=== PATIENT | female | born 1990 | race African-American/Black ===

== ENCOUNTER 2016-09-27 07:51 | Emergency (ER) | payer OTHER ==
[2016-09-27] MEDS ORDERED: ALBUTEROL SO4 2.5/IPRATROPIUM 0.5 INH SOL 3 ML VIAL.NEB. NEB ONE ×2 (07:58→08:39)
[2016-09-27] MEDS ORDERED: DEXAMETHASONE SOD PHOSPHATE 10 MG/1 ML VIAL ONE (07:58)
[2016-09-27 08:05] VITALS: TEMP 97.5; BMI 25.5
--- NOTE | 2016-09-27 08:08 | PDOC ---
History of Present Illness - General History Source: Patient, EMS Exam Limitations: No Limitations - History of Present Illness Initial Comments: 09/27/16 08:24 The patient is a 26 year old female with a past medical history of asthma (no prior intubations), BIBA to the emergency department today with shortness of breath for 3 days. On Wednesday the patient went out with friends and smoked hookah. Wednesday morning the patient began to experience some chest tightness. The patient notes that her last cycle of steroids was finished last month and she has been using her breathing pump at home but has been unable to use her rescue inhaler due to insurance complications. She denies cough, fever, and chills PAST MEDICAL HISTORY: Asthma PAST SURGICAL HISTORY: No significant history reported SOCIAL HISTORY: Current smoker <Edgardo Acosta - Last Filed: 09/27/16 08:24> - General History Source: Patient, Old Records Exam Limitations: No Limitations <Jasmin Almanza - Last Filed: 09/27/16 10:41> - General Chief Complaint: Asthma Stated Complaint: ASTHMA Time Seen by Provider: 09/27/16 08:02 Past History <Edgardo Acosta - Last Filed: 09/27/16 08:24> - Past Medical History Asthma: Yes - Psycho/Social/Smoking Cessation Hx Anxiety: No Suicidal Ideation: No Smoking History: Current some day smoker Have you smoked in the past 12 months: Yes Number of Cigarettes Smoked Daily: 1 Information on smoking cessation initiated: No Hx Alcohol Use: No Drug/Substance Use Hx: No Substance Use Type: None <Jasmin Almanza - Last Filed: 09/27/16 10:41> - Past Medical History Allergies/Adverse Reactions: Allergies Allergy/AdvReac Type Severity Reaction Status Date / Time No Known Allergies Allergy Verified 09/27/16 07:59 Home Medications: Ambulatory Orders Albuterol 0.083% Nebulizer Elen [Ventolin 0.083%] 1 neb NEB Q4H PRN 09/27/16 Albuterol Sulfate [Proair Respiclick] 90 mcg IH BID PRN 09/27/16 Prednisone [Deltasone -] 40 mg PO UTDICT #8 tablet 09/27/16 Review of Systems - Review of Systems Able to Perform ROS?: Yes Comments:: 09/27/16 08:25 CONSTITUTIONAL: Absent: fever, chills, diaphoresis, generalized weakness, malaise, loss of appetite HEENT: Absent: rhinorrhea, nasal congestion, throat pain, throat swelling, difficulty swallowing, mouth swelling, ear pain, eye pain, visual Changes CARDIOVASCULAR: Present: chest tightness Absent: syncope, palpitations, irregular heart rate, lightheadedness, peripheral edema RESPIRATORY: Present: Shortness of breath Absent: cough, shortness of breath, dyspnea with exertion, orthopnea, wheezing, stridor, hemoptysis GASTROINTESTINAL: Absent: abdominal pain, abdominal distension, nausea, vomiting, diarrhea, constipation, melena, hematochezia GENITOURINARY: Absent: dysuria, frequency, urgency, hesitancy, hematuria, flank pain, genital pain MUSCULOSKELETAL: Absent: myalgia, arthralgia, joint swelling SKIN: Absent: rash, itching, pallor HEMATOLOGIC/IMMUNOLOGIC: Absent: easy bleeding, easy bruising, lymphadenopathy, frequent infections ENDOCRINE: Absent: unexplained weight gain, unexplained weight loss, heat intolerance, cold intolerance NEUROLOGIC: Absent: headache, focal weakness or paresthesias, dizziness, unsteady gait, seizure, mental status changes, bladder or bowel incontinence PSYCHIATRIC: Absent: anxiety, depression, suicidal or homicidal ideation, hallucinations. <Edgardo Acosta - Last Filed: 09/27/16 08:24> *Physical Exam - Vital Signs Last Vital Signs Temp Pulse Resp BP Pulse Ox 97.5 F L 95 H 20 119/85 94 L 09/27/16 08:01 09/27/16 08:01 09/27/16 08:01 09/27/16 08:01 09/27/16 08:01 - Physical Exam Comments: 09/27/16 08:25 GENERAL: Well developed, well nourished. Awake and alert. In no acute distress. HEENT: Normocephalic, atraumatic. PERRLA, EOMI. No conjunctival pallor. Sclera are non- icteric. Moist mucous membranes. Oropharynx is clear. NECK: Supple. Full ROM. No JVD. Carotid pulses 2+ and symmetric, without bruits. No thyromegaly. No lymphadenopathy. CARDIOVASCULAR: Regular rate and rhythm. No murmurs, rubs, or gallops. Distal pulses are 2+ and symmetric. PULMONARY: (+) Mild evidence of respiratory distress. Lungs clear to auscultation bilaterally. Diffuse bilateral expiratory wheezing. No rales or rhonchi. ABDOMINAL: Soft. Non-tender. Non-distended. No rebound or guarding. No organomegaly. Normoactive bowel sounds. MUSCULOSKELETAL Normal range of motion at all joints. No bony deformities or tenderness. No CVA tenderness. EXTREMITIES: No cyanosis. No clubbing. No edema. No calf tenderness. SKIN: Warm and dry. Normal capillary refill. No rashes. No jaundice. NEUROLOGICAL: Alert, awake, appropriate. Cranial nerves 2-12 intact. No deficits to light touch and temperature in face, upper extremities and lower extremities. No motor deficits in the in face, upper extremities and lower extremities. Normoreflexic in the upper and lower extremities. Normal speech. Toes are downgoing bilaterally. Gait is normal without ataxia. PSYCHIATRIC: Cooperative. Good eye contact. Appropriate mood and affect. <Edgardo Acosta - Last Filed: 09/27/16 08:24> - Vital Signs Last Vital Signs Temp Pulse Resp BP Pulse Ox 97.5 F L 95 H 20 119/85 94 L 09/27/16 08:01 09/27/16 08:01 09/27/16 08:01 09/27/16 08:01 09/27/16 08:01 <Jasmin Almanza - Last Filed: 09/27/16 10:41> Medical Decision Making - Medical Decision Making 09/27/16 08:17 26-year-old female with history of asthma no prior intubations presents to the emergency department with shortness of breath since yesterday; she received one DuoNeb treatment by EMS as well as dexamethasone 10 mg IV in the field. She is in mild respiratory distress and has good air movement on lung exam. Differential diagnosis includes but is not limited to: Shortness of breath secondary to Acute asthmatic exacerbation. Plan: 1. DuoNeb treatments 2. Peak flow measurement 3. Observe and reevaluate 09/27/16 10:38 Addendum: I have reevaluated patient at this time after 3 albuterol and Atrovent nebs. The patient is feeling improved. Her lungs have scant wheezing at the bilateral bases. She is saturating well on room air and is comfortable in no respiratory distress. The plan is to discharge the patient home. She is being prescribed prednisone 40 mg daily for the next 4 days. The patient states that she has a prescription for an albuterol MDI. She will follow up with her primary care doctor within the next week and return to the emergency department if her symptoms persist, worsen, or new symptoms arise. <Jasmin Almanza - Last Filed: 09/27/16 10:41> *DC/Admit/Observation/Transfer - Attestations Scribe Attestion: 09/27/16 08:25 Documentation prepared by Edgardo Acosta, acting as medical dosimetrist for Jasmin Almanza MD. <Edgardo Acosta - Last Filed: 09/27/16 08:24> - Discharge Dispostion Admit: No - Attestations Physician Attestion: 09/27/16 08:19 I, Dr. Jasmin Almanza, attest that the scribes documentation that appears above has been prepared under my direction and personally reviewed by me in its entirety. I confirmed that the note above accurately reflects all work, treatment, procedures, and medical decision-making performed by me. <Jasmin Almanza - Last Filed: 09/27/16 10:41> Diagnosis at time of Disposition: Shortness of breath, Acute asthma exacerbation - Discharge Dispostion Disposition: HOME Condition at time of disposition: Stable - Referrals Referrals: STAFF,NOT ON [Primary Care Provider] - - Patient Instructions Additional Instructions: You are being prescribed prednisone 40 mg daily for the next 4 days. Please follow-up with your primary care physician within the next week. Please fill your prescription for the albuterol MDI today. Return to the emergency department if your symptoms persist, worsen, or new symptoms arise.
[2016-09-27] MEDS: ALBUTEROL SO4 2.5/IPRATROPIUM 0.5 INH SOL 3 ML VIAL.NEB. NEB SCH ×4 (08:43→10:58)
[2016-09-27 10:58] VITALS: BP 121/78; PULSE 84
== END 2016-09-27 10:58 | disposition home or self-care (01) ==
LOC: JER 07:51
DX: J45.901 Unspecified asthma with (acute) exacerbation (principal)
CPT/HCPCS: 99282-25

== ENCOUNTER 2018-03-16 07:37 | Emergency (ER) | payer OTHER ==
[2018-03-16] MEDS ORDERED: MAGNESIUM 1GM/D5W - 2 GM/200 ML IVPB IVPB ONE (07:44)
[2018-03-16] MEDS ORDERED: ALBUTEROL SO4 2.5/IPRATROPIUM 0.5 INH SOL 3 ML VIAL.NEB. NEB ONE ×4 (07:45→13:14)
[2018-03-16] MEDS ORDERED: MAGNESIUM SULF 50% (8.12 MEQ/2 ML-1 GM VIAL) IVPB ONE (07:46)
[2018-03-16 07:59] VITALS: BMI 27.4
[2018-03-16 08:57] LABS: ALBUMIN 3.6 g/dl (3.4-5.0); ALK PHOS 75 U/L (45-117); ANION GAP 7 MMOL/L (8-16); BILIRUBIN,TOTAL 0.4 mg/dL (0.2-1); BLOOD UREA NITROGEN 7 mg/dL (7-18); CALCIUM 8.4 mg/dL (8.5-10.1); CHLORIDE 105 mmol/L (98-107); CO2 27 mmol/L (21-32); CREATININE 0.9 mg/dL (0.55-1.3); GLUCOSE,RANDOM 121 mg/dL (74-106); POTASSIUM 3.9 mmol/L (3.5-5.1); SGOT/AST 19 U/L (15-37); SGPT/ALT 21 U/L (13-61); SODIUM 139 mmol/L (136-145); TOT PROT 6.9 g/dl (6.4-8.2)
[2018-03-16 09:14] LABS: BASO % 0.4 % (0-2.0); EOS % 9.6 % (0-4.5); HEMATOCRIT 41.7 % (32.4-45.2); HEMOGLOBIN 14.5 GM/dL (10.7-15.3); LYMPH % 29.5 % (8-40); MCH 32.2 pg (25.7-33.7); MCHC 34.7 g/dl (32.0-36.0); MEAN CELL VOLUME 92.8 fl (80-96); MEAN PLT VOLUME 8.1 fl (7.5-11.1); NEUT % 52.5 % (42.8-82.8); PLATELET COUNT 240 K/MM3 (134-434); RDW 13.5 % (11.6-15.6); WHITE BLOOD COUNT 7.4 K/mm3 (4.0-10.0)
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
[2018-03-16] MEDS ORDERED: ALBUTEROL SO4 0.083% IH SOL 2.5 MG/3 ML VIAL.NEB. NEB ONE ×6 (10:33→16:22)
[2018-03-16 16:21] VITALS: BP 118/86; PULSE 91; TEMP 98.1
== END 2018-03-16 16:24 | disposition home or self-care (01) ==
LOC: JER 07:37
PROC: 3E033GC Introduction of Other Therapeutic Substance into Peripheral Vein, Percutaneous Approach (ICD-10-PCS; principal; 2018-03-16)
PROC: 3E0F7GC Introduction of Other Therapeutic Substance into Respiratory Tract, Via Natural or Artificial Opening (ICD-10-PCS; 2018-03-16)
DX: J45.901 Unspecified asthma with (acute) exacerbation (principal); Z87.891 Personal history of nicotine dependence
CPT/HCPCS: 36415; 80053; 84703; 85025; 99284-25

== ENCOUNTER 2018-03-17 04:17 | Observation (INO) | payer OTHER ==
[2018-03-17] MEDS ORDERED: MAGNESIUM SULF 50% (8.12 MEQ/2 ML-1 GM VIAL) IVPB ONE (04:49)
[2018-03-17] MEDS ORDERED: MAGNESIUM 1GM/D5W - 1 GM/100 ML IVPB IVPB ONE (04:49)
[2018-03-17] MEDS ORDERED: ALBUTEROL SO4 2.5/IPRATROPIUM 0.5 INH SOL 3 ML VIAL.NEB. NEB ONE ×3 (04:49→12:27)
--- NOTE | 2018-03-17 04:49 | PDOC ---
History of Present Illness - General Chief Complaint: Asthma Stated Complaint: ASTHMA,DIFFICULTY BREATHING Time Seen by Provider: 03/17/18 04:44 - History of Present Illness Initial Comments: 03/17/18 05:06 The patient is a 27 year old female with a history of asthma who presents for evaluation of shortness of breath. The patient notes that she has had prior hospitalizations for asthma exacerbation with her last one being 6 years ago. She has never been intubated. She notes that she recently presented to the ED 1 day ago for similar symptoms of difficulty breathing and was treated with decadron and duonebs with some improvement in her symptoms. She notes that after her discharge, she had improved, however she awoke this morning with worsening difficulty breathing prompting her presentation to the ED for further evaluation. She otherwise denies fevers, chills, chest pain, nausea, vomiting, abdominal pain, or changes with urination or bowel movements. Past History - Past Medical History Allergies/Adverse Reactions: Allergies Allergy/AdvReac Type Severity Reaction Status Date / Time No Known Allergies Allergy Verified 03/17/18 04:38 Home Medications: Ambulatory Orders Albuterol 0.083% Nebulizer Elen [Ventolin 0.083% Nebulizer Soln -] 1 neb NEB Q4H PRN #1 vial 02/01/17 Albuterol Sulfate Inhaler - [Ventolin HFA Inhaler -] 2 inh PO Q4H PRN #1 inh 09/12 Albuterol Sulfate Inhaler - [Ventolin HFA Inhaler -] 1 - 2 inh PO Q4H #1 inhaler 03/16/18 Dexamethasone [Decadron] 8 mg PO DAILY #2 tablet 03/16/18 Asthma: Yes COPD: No - Suicide/Smoking/Psychosocial Hx Smoking History: Never smoked Have you smoked in the past 12 months: No Number of Cigarettes Smoked Daily: 4 If you are a former smoker, when did you quit?: 02/2018 Information on smoking cessation initiated: No Hx Alcohol Use: No Drug/Substance Use Hx: No Substance Use Type: None Review of Systems - Review of Systems Comments:: 03/17/18 05:12 Constitutional: No fevers, chills, fatigue, malaise HEENT: No Rhinorrhea, nasal congestion, visual changes Cardiovascular: No chest pain, syncope, palpitations, lightheadedness Respiratory: SOB. No Cough, Hemoptysis, Gastrointestinal: No Abdominal pain, Nausea, Vomiting, Constipation, Diarrhea, Melena Genitourinary: No Dysuria, Frequency, Urgency, Hesitancy, Hematuria, Flank pain Musculoskeletal: No Myalgia, arthralgia Skin: No rashes, itching, bruising, pallor Neurologic: No Headache, Dizziness, Numbness, Weakness, or Tingling Psychiatric: No Hallucinations. No SI or HI *Physical Exam - Vital Signs Last Vital Signs Temp Pulse Resp BP Pulse Ox 96.8 F L 110 H 22 H 145/95 94 L 03/17/18 04:17 03/17/18 04:17 03/17/18 04:17 03/17/18 04:17 03/17/18 04:17 - Physical Exam Comments: 03/17/18 05:12 General Appearance: Nourished. In [place] Apparent Distress HEENT: No Pharyngeal Erythema, Tonsillar Exudate, Tonsillar Erythema Neck: No Cervical Lymphadenopathy Respiratory/Chest: Diffuse inspiratory and expiratory wheezing with course breath sounds and poor air movement. No Crackles, Rales, Rhonchi, Cardiovascular: Regular Rhythm, Regular Rate. No Murmur, Gallops, Rubs Gastrointestinal/Abdominal: Normal Bowel Sounds, Soft. No Guarding, Rebound, Tenderness Musculoskeletal: No CVA Tenderness Extremity: Normal Capillary Refill Integumentary: Normal Color, Dry, Warm Neurologic: Fully Oriented, Alert, Normal Mood/Affect, Normal Response, Moderate Sedation - Procedure Monitoring Vital Signs: Procedure Monitoring Vital Signs Temperature 96.8 F L 03/17/18 04:17 Pulse Rate 110 H 03/17/18 04:17 Respiratory Rate 22 H 03/17/18 04:17 Blood Pressure 145/95 03/17/18 04:17 O2 Sat by Pulse Oximetry (%) 94 L 03/17/18 04:17 Heart Score/ECG Review #1 ECG reviewed & interpreted by me at: 06:58 General ECG Interpretation: Sinus Rhythm, Normal Intervals, No acute ischemic changes 03/17/18 06:58 Sinus Tachycardia ED Treatment Course - LABORATORY CBC & Chemistry Diagram: 03/17/18 04:51 03/17/18 04:51 Medical Decision Making - Medical Decision Making 03/17/18 05:13 The patient is a 27 year old female with a history of asthma who presents for evaluation of shortness of breath. Given the patient's history and physical exam, it is likely her symptoms are due to a recurrent asthma exacerbation. We will obtain a cbc, cmp, chest plain film, ekg to evaluate further. We will treat with continuous duonebs and mag. She will likely require admission for further management given her desaturations and persistent asthma exacerbation. We will continue to monitor and reassess while here in the ED. 03/17/18 06:49 CMP is unremarkable. Chest plain film is unremarkable. The patient reports some improvement in her symptoms, but continues to have course breath sound and wheezing on exam. She will require admission for further monitoring and management. We discussed the case with the admitting team who accepted the patient for admission. *DC/Admit/Observation/Transfer Diagnosis at time of Disposition: Acute asthma exacerbation Qualifiers: Asthma severity: unspecified severity Asthma persistence: unspecified Qualified Code(s): J45.901 - Unspecified asthma with (acute) exacerbation - Discharge Dispostion Condition at time of disposition: Fair Decision to Admit order: Yes - Referrals Referrals: Angel White [Primary Care Provider] - - Patient Instructions - Post Discharge Activity
[2018-03-17 05:39] LABS: ALBUMIN 4.1 g/dl (3.4-5.0); ALK PHOS 84 U/L (45-117); ANION GAP 7 MMOL/L (8-16); BILIRUBIN,TOTAL 0.2 mg/dL (0.2-1); BLOOD UREA NITROGEN 11 mg/dL (7-18); CALCIUM 9.5 mg/dL (8.5-10.1); CHLORIDE 108 mmol/L (98-107); CO2 23 mmol/L (21-32); CREATININE 0.8 mg/dL (0.55-1.3); GLUCOSE,RANDOM 104 mg/dL (74-106); POTASSIUM 4.5 mmol/L (3.5-5.1); SGOT/AST 20 U/L (15-37); SGPT/ALT 22 U/L (13-61); SODIUM 138 mmol/L (136-145)
--- NOTE | 2018-03-17 06:08 | PDOC ---
Attending Attestation - Resident Resident Name: RhonaClaudio - ED Attending Attestation I have performed the following: I have examined & evaluated the patient, The case was reviewed & discussed with the resident, I agree w/resident's findings & plan, Exceptions are as noted - HPI HPI: 03/23/18 19:31 27F pmh of asthma here with acute exacerbation of her asthma, was here yesterday for same complaint, symptoms were controlled well enough for discharge. Early in the morning, her symptoms worsened to intolerability and she returnded to the ED. No other complaints. - Physicial Exam PE: 03/23/18 19:32 Agree with exam as documented by resident - Medical Decision Making 03/23/18 19:33 Acute exacerbation of asthma, re-presentation after 1 day. Agressive symptomatic tx, re-eval Low threshold for admission for therapy and monitoring
[2018-03-17 06:37] LABS: BASO % 0.2 % (0-2.0); EOS % 0.1 % (0-4.5); HEMATOCRIT 41.5 % (32.4-45.2); HEMOGLOBIN 14.3 GM/dL (10.7-15.3); LYMPH % 13.3 % (8-40); MCH 31.8 pg (25.7-33.7); MCHC 34.5 g/dl (32.0-36.0); MEAN CELL VOLUME 92.2 fl (80-96); MEAN PLT VOLUME 8.7 fl (7.5-11.1); MONO % 7.2 % (3.8-10.2); NEUT % 79.2 % (42.8-82.8); PLATELET COUNT 280 K/MM3 (134-434); RDW 13.5 % (11.6-15.6); WHITE BLOOD COUNT 13.6 K/mm3 (4.0-10.0)
[2018-03-17] MEDS ORDERED: methylPREDNISolone NA SUCC 125 MG/2 ML VIAL IVPUSH ONE (07:40)
[2018-03-17] MEDS ORDERED: methylPREDNISolone NA SUCC 125 MG/2 ML VIAL ONE (08:30)
--- NOTE | 2018-03-17 09:18 | PN ---
Teaching Attending Note Name of Resident: Viktoria Watts ATTENDING PHYSICIAN STATEMENT I saw and evaluated the patient. I reviewed the resident's note and discussed the case with the resident. I agree with the resident's findings and plan as documented with exceptions below. SUBJECTIVE: 27 yof with PMhx of Asthma since childhood, never intubated, has been getting progressively short of breath, wheezy over last 1 month associated with occasional non productive cough. 2 weeks ago, was seen in another ED, placed on 3 days of prednisone. Yesterday AM, felt more short of breath and was seen in ED here s/p dexamethasone and sent out on dexamethasone but had not taken it yet. Today AM again woke up with worsening breathing/wheezing came to ED. s/p nebs/Solumedrol/Mg in the ED. Feels better. Denies any recent fevers/chills, URI like illness, sick contacts, antibiotics or recent travel. Reports usually stable asthma in august, but frequent use of inhalers in winter months, several times week. Also positive seasonal allergies. No recent change in living condition. 12 point ROS done, neg except above. Quit smoking 1 month ago. OBJECTIVE: Vital Signs Period Temp Pulse Resp BP Sys/Lebron Pulse Ox Last 24 Hr 96.8 F-98 F 96-110 22-22 116-145/73-95 94-98 Intake & Output 03/14/18 03/15/18 03/16/18 03/17/18 23:59 23:59 23:59 23:59 Weight 160 lb GENERAL: Awake, alert, and fully oriented, in no acute distress, able to talk in full sentences, no use of accessory muscles of respiration. HEAD: Normal with no signs of trauma. EYES: Pupils equal, round and reactive to light, extraocular movements intact, sclera anicteric, conjunctiva clear. No lid lag. EARS, NOSE, THROAT: Ears normal, nares patent, oropharynx clear without exudates. Moist mucous membranes. NECK: Normal range of motion, supple without lymphadenopathy, JVD, or masses. LUNGS: scattered expiratory wheezing bilaterally, good air entry noted, no rales appreciated HEART: RS1S2 regular tachycardic ABDOMEN: Soft, nontender, not distended, normoactive bowel sounds, no guarding, no rebound, no masses. MUSCULOSKELETAL: Normal range of motion at all joints. No bony deformities or tenderness. No CVA tenderness. UPPER EXTREMITIES: 2+ pulses, warm, well-perfused. No cyanosis. No clubbing. No peripheral edema. LOWER EXTREMITIES: 2+ pulses, warm, well-perfused. No calf tenderness. No peripheral edema. NEUROLOGICAL: Cranial nerves II-XII intact. Normal speech. Gait not observed PSYCHIATRIC: Cooperative. Good eye contact. Appropriate mood and affect. SKIN: Warm, dry, normal turgor, no rashes or lesions noted, normal capillary refill. Home Medications Medication Instructions Recorded Albuterol 0.083% Nebulizer Elen 1 neb NEB Q4H PRN #1 vial 02/01/17 [Ventolin 0.083% Nebulizer Soln -] Albuterol Sulfate Inhaler - 2 inh PO Q4H PRN #1 inh 02/01/17 [Ventolin HFA Inhaler -] Albuterol Sulfate Inhaler - 1 - 2 inh PO Q4H #1 inhaler 03/16/18 [Ventolin HFA Inhaler -] Dexamethasone [Decadron] 8 mg PO DAILY #2 tablet 03/16/18 Active Medications Albuterol Sulfate (Ventolin 0.083% Nebulizer Soln -) 1 amp NEB Q4H PRN PRN Reason: SHORT OF BREATH/WHEEZING Albuterol/Ipratropium (Duoneb -) 1 amp NEB RQID [facility] Heparin Sodium (Porcine) (Heparin -) 5,000 unit SQ BID [facility] Methylprednisolone Sodium Succinate (Solu-Medrol -) 40 mg IVPUSH Q12H [facility] Montelukast Sodium (Singulair -) 10 mg PO HS [facility] Laboratory Results - last 24 hr 03/17/18 03/17/18 03/17/18 04:51 04:51 04:51 WBC 13.6 H RBC 4.50 Hgb 14.3 Hct 41.5 MCV 92.2 MCH 31.8 MCHC 34.5 RDW 13.5 Plt Count 280 MPV 8.7 Absolute Neuts (auto) 10.8 H Neutrophils % 79.2 D Lymphocytes % 13.3 D Monocytes % 7.2 Eosinophils % 0.1 D Basophils % 0.2 Nucleated RBC % 0 Sodium 138 Potassium 4.5 Chloride 108 H Carbon Dioxide 23 Anion Gap 7 L BUN 11 Creatinine 0.8 Creat Clearance w eGFR > 60 Random Glucose 104 Calcium 9.5 Total Bilirubin 0.2 AST 20 ALT 22 Alkaline Phosphatase 84 Total Protein 8.0 Albumin 4.1 Serum , Qual Negative CXR image and results reviewed EKG Sinus Tach 111, no acute ST-T changes ASSESSMENT AND PLAN: 27 yof with asthma exacerbation -Acute asthma exacerbation -Seasonal allergies -Nicotine dependence, recently quit Plan: Solumedrol 40 mg IV q12h. Standing and prn nebs. Start singulair. Flu PCR but low suspicion. Presentation not concerning for infectious process, hold off on abx. Check Peak flow. Will need outpatient pulmonary/Allergy follow up and PFTs. Discussed with patient, tinable. DVTPPX Encouraged to continue to smoking cessation. dispo admit to obs, d/c in 24hours of prednisone taper if continues to improve. Plan discussed with patient in detail, all questions answered. total admit time 55 min.
--- NOTE | 2018-03-17 09:28 | HP ---
CHIEF COMPLAINT: SOB PCP: None HISTORY OF PRESENT ILLNESS: The patient is a 27 year old female with a PMH of asthma, seasonal allergies. She presented today to the hospital complaining of SOB that started around 4 AM. The patient used nebulizers without improvement and decided to come to Emergency Room. Yesterday in the morning she was brought by ambulance with similar complaints. On the was to the hospital, she was given 10 mg of Decadron and discharged home on Decadron for 2 days. 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 She states that over the past month, she has been using nebulizers/inhalers almost every day and wakes up at night. She was also seen in [place] ED 2 weeks ago where she was discharged on steroids for 3 days. The patient has a history of hospitalizations for asthma in the past, steroid use, no intubations. The patient denies fever, chills, productive cough, sick contacts, changes in housing, relocating. She quit smoking a month ago and states that every year around the same time she gets asthma exacerbations. ER course was notable for: (1)CXR (2)Mg (3)Duoneb PAST MEDICAL HISTORY: as above PAST SURGICAL HISTORY: none Social History: Smoking:quit February 07 2018, smoked for "years" Alcohol:occasionally Drugs: denies Family History: sister: asthma, seasonal allergies paerents: healthy grandparents: DM, HTN Allergies No Known Allergies Allergy (Verified 03/17/18 04:38) HOME MEDICATIONS: Home Medications Medication Instructions Recorded Albuterol 0.083% Nebulizer Elen 1 neb NEB Q4H PRN #1 vial 02/01/17 [Ventolin 0.083% Nebulizer Soln -] Albuterol Sulfate Inhaler - 2 inh PO Q4H PRN #1 inh 02/01/17 [Ventolin HFA Inhaler -] Albuterol Sulfate Inhaler - 1 - 2 inh PO Q4H #1 inhaler 03/16/18 [Ventolin HFA Inhaler -] Dexamethasone [Decadron] 8 mg PO DAILY #2 tablet 03/16/18 REVIEW OF SYSTEMS CONSTITUTIONAL: Absent: fever, chills, diaphoresis, generalized weakness, weight change HEENT: Absent: rhinorrhea, nasal congestion, throat pain CARDIOVASCULAR: Absent: chest pain, syncope, palpitations, irregular heart rate, lightheadedness , peripheral edema RESPIRATORY: wheezing, shortness of breath Absent: cough, , dyspnea with exertion, orthopnea, stridor, hemoptysis GASTROINTESTINAL: Absent: abdominal pain, abdominal distension, nausea, vomiting, diarrhea, constipation GENITOURINARY: Absent: dysuria, frequency, urgency MUSCULOSKELETAL: Absent: myalgia, arthralgia, joint swelling SKIN: Absent: rash NEUROLOGIC: Absent: headache, focal weakness or paresthesias, dizziness PSYCHIATRIC: Absent: anxiety, depression PHYSICAL EXAMINATION Vital Signs - 24 hr 03/17/18 03/17/18 04:17 08:39 Temperature 96.8 F L 98 F Pulse Rate 110 H Pulse Rate [ 96 H Right] Respiratory 22 H 22 H Rate Blood Pressure 145/95 Blood Pressure 116/73 [Left] O2 Sat by Pulse 94 L 98 Oximetry (%) GENERAL: Awake, alert, and fully oriented, in no acute distress. HEAD: Normal with no signs of trauma. EYES: Pupils equal, round and reactive to light, extraocular movements intact, sclera anicteric, conjunctiva clear. EARS, NOSE, THROAT: Oropharynx clear without exudates. Moist mucous membranes. NECK: Normal range of motion, supple without lymphadenopathy, JVD, or masses. LUNGS: Breath sounds equal, clear to auscultation bilaterally. No wheezes, and no crackles. No accessory muscle use. HEART: Regular rate and rhythm, normal S1 and S2 without murmur, rub or gallop. ABDOMEN: Soft, nontender, not distended, normoactive bowel sounds, no guarding, no rebound, no masses. MUSCULOSKELETAL: No CVA tenderness. UPPER EXTREMITIES: No peripheral edema. LOWER EXTREMITIES: 2+ pulses, no peripheral edema. NEUROLOGICAL: Normal speech, no facial asymmetry, motor 5/5. PSYCHIATRIC: Cooperative. Good eye contact. Appropriate mood and affect. SKIN: Warm, dry, normal turgor, no rashes or lesions noted. Laboratory Results - last 24 hr 03/17/18 03/17/18 03/17/18 04:51 04:51 04:51 WBC 13.6 H RBC 4.50 Hgb 14.3 Hct 41.5 MCV 92.2 MCH 31.8 MCHC 34.5 RDW 13.5 Plt Count 280 MPV 8.7 Absolute Neuts (auto) 10.8 H Neutrophils % 79.2 D Lymphocytes % 13.3 D Monocytes % 7.2 Eosinophils % 0.1 D Basophils % 0.2 Nucleated RBC % 0 Sodium 138 Potassium 4.5 Chloride 108 H Carbon Dioxide 23 Anion Gap 7 L BUN 11 Creatinine 0.8 Creat Clearance w eGFR > 60 Random Glucose 104 Calcium 9.5 Total Bilirubin 0.2 AST 20 ALT 22 Alkaline Phosphatase 84 Total Protein 8.0 Albumin 4.1 Serum , Qual Negative ASSESSMENT/PLAN: The patient is a 27 year old female with a PMH of asthma, seasonal allergies. She presented today to the hospital complaining of SOB, admitted for observation for acute asthma exacerbation. Acute asthma exacerbation: (moderate persistant): -the patient was given Decadron 10 mg 24 hrs before admission, will give Solumedrol 125 mg IV and continue Solumedrol 40 mg IV q12h -continue Duonebs Q6h Valeri and q3h PRN -Peek flow ordered -CXR reviewed, no acute pathology -f/u Influenza -started Singulair 10 mg HS F/E/N: no/no changes/regular diet Dispo: observation med surg Problem List - Problem (1) Acute asthma exacerbation Code(s): J45.901 - UNSPECIFIED ASTHMA WITH (ACUTE) EXACERBATION Qualifiers: Asthma severity: unspecified severity Asthma persistence: unspecified Qualified Code(s): J45.901 - Unspecified asthma with (acute) exacerbation (2) Shortness of breath Code(s): R06.02 - SHORTNESS OF BREATH Visit type - Emergency Visit Emergency Visit: Yes ED Registration Date: 03/17/18 Care time: The patient presented to the Emergency Department on the above date and was hospitalized for further evaluation of their emergent condition. - New Patient This patient is new to me today: Yes Date on this admission: 03/17/18 - Critical Care Critical Care patient: No
[2018-03-17] MEDS ORDERED: ALBUTEROL SO4 0.083% IH SOL 2.5 MG/3 ML VIAL.NEB. NEB PRN (09:40)
[2018-03-17] MEDS ORDERED: HEPARIN NA (PORCINE) 5,000 UNITS/ML 1ML VIAL SQ SCH (10:00)
--- NOTE | 2018-03-17 12:01 | EKG ---
Test Reason : Blood Pressure : / mmHG Vent. Rate : 111 BPM Atrial Rate : 111 BPM P-R Int : 140 ms QRS Dur : 082 ms QT Int : 340 ms P-R-T Axes : 063 015 053 degrees QTc Int : 462 ms POOR DATA QUALITY, INTERPRETATION MAY BE ADVERSELY AFFECTED SINUS TACHYCARDIA OTHERWISE NORMAL ECG NO PREVIOUS ECGS AVAILABLE Confirmed by PERCY KING MD ([id number]) on 03/17/2018 12:00:40 PM Referred By: Confirmed By:PERCY KING MD
[2018-03-17] MEDS: ALBUTEROL SO4 2.5/IPRATROPIUM 0.5 INH SOL 3 ML VIAL.NEB. NEB SCH (12:29)
[2018-03-17 18:35] VITALS: BMI 27.8
[2018-03-17] MEDS ORDERED: MONTELUKAST NA 10 MG TABLET PO SCH (22:00)
[2018-03-17] MEDS: methylPREDNISolone NA SUCC 40 MG/1 ML VIAL IVPUSH SCH (22:15)
[2018-03-18] MEDS: ALBUTEROL SO4 2.5/IPRATROPIUM 0.5 INH SOL 3 ML VIAL.NEB. NEB SCH ×3 (07:21→16:21)
[2018-03-18 08:23] LABS: BASO % 0.3 % (0-2.0); HEMATOCRIT 44.7 % (32.4-45.2); HEMOGLOBIN 14.1 GM/dL (10.7-15.3); LYMPH % 9.2 % (8-40); MCH 29.6 pg (25.7-33.7); MCHC 31.5 g/dl (32.0-36.0); MONO % 4.7 % (3.8-10.2); NEUT % 85.8 % (42.8-82.8); PLATELET COUNT 284 K/MM3 (134-434); RBC 4.76 M/mm3 (3.60-5.2); RDW 13.5 % (11.6-15.6); WHITE BLOOD COUNT 13.5 K/mm3 (4.0-10.0)
[2018-03-18 08:54] VITALS: BP 125/72; TEMP 98.6
[2018-03-18 08:55] LABS: ALBUMIN 3.8 g/dl (3.4-5.0); ALK PHOS 74 U/L (45-117); ANION GAP 9 MMOL/L (8-16); BILIRUBIN,TOTAL 0.3 mg/dL (0.2-1); BLOOD UREA NITROGEN 15 mg/dL (7-18); CALCIUM 9.4 mg/dL (8.5-10.1); CHLORIDE 104 mmol/L (98-107); CO2 23 mmol/L (21-32); CREATININE 0.8 mg/dL (0.55-1.3); GLUCOSE,RANDOM 97 mg/dL (74-106); MAGNESIUM 2.5 mg/dL (1.8-2.4); PHOSPHOROUS 4.2 mg/dL (2.5-4.9); POTASSIUM 4.6 mmol/L (3.5-5.1); SGOT/AST 14 U/L (15-37); SGPT/ALT 21 U/L (13-61); SODIUM 136 mmol/L (136-145); TOT PROT 7.5 g/dl (6.4-8.2)
[2018-03-18] MEDS: methylPREDNISolone NA SUCC 40 MG/1 ML VIAL IVPUSH SCH (09:16)
[2018-03-18] MEDS ORDERED: predniSONE 20 MG TABLET (UD) PO SCH (10:00)
[2018-03-18] MEDS ORDERED: ENOXAPARIN NA (PORCINE) 40 MG/0.4 ML DISP.SYRIN SQ SCH (10:00)
[2018-03-18 10:15] VITALS: PULSE 85
--- NOTE | 2018-03-18 14:27 | DS ---
Physical Exam: SUBJECTIVE: Patient seen and examined this AM. She states that she is feeling much better than yesterday though still having some wheezing. Denies any overnight events. OBJECTIVE: Vital Signs Period Temp Pulse Resp BP Sys/Lebron Pulse Ox Last 24 Hr 98.6 F-99.0 F 65-110 18-20 111-127/72-78 93-96 PHYSICAL EXAM GENERAL: A&O, no acute distress HEAD: Normocephalic, atraumatic. EYES: PERRL, no scleral icterus EARS, NOSE, THROAT: oropharynx clear without exudates. Moist mucous membranes. NECK: supple without lymphadenopathy LUNGS: Diffuse wheezes HEART: Regular rate and rhythm, normal S1 and S2 without murmur ABDOMEN: Soft, nontender to palpation, normoactive bowel sounds EXTREMITIES: 2+ pulses, warm, well-perfused. No peripheral edema. NEUROLOGICAL: Cranial nerves II-XII grossly intact. Normal speech. PSYCHIATRIC: Cooperative. Good eye contact. Appropriate mood and affect. LABS Laboratory Results - last 24 hr 03/17/18 03/18/18 03/18/18 17:05 07:30 07:30 WBC 13.5 H RBC 4.76 Hgb 14.1 Hct 44.7 MCV 94.0 MCH 29.6 MCHC 31.5 L RDW 13.5 Plt Count 284 MPV 8.0 Absolute Neuts (auto) 11.6 H Neutrophils % 85.8 H Lymphocytes % 9.2 D Monocytes % 4.7 Eosinophils % 0.0 D Basophils % 0.3 Nucleated RBC % 0 Sodium 136 Potassium 4.6 Chloride 104 Carbon Dioxide 23 Anion Gap 9 BUN 15 Creatinine 0.8 Creat Clearance w eGFR > 60 Random Glucose 97 Calcium 9.4 Phosphorus 4.2 Magnesium 2.5 H Total Bilirubin 0.3 AST 14 L ALT 21 Alkaline Phosphatase 74 Total Protein 7.5 Albumin 3.8 Influenza A (Rapid) Negative Influenza B (Rapid) Negative HOSPITAL COURSE: Date of Admission:03/17/18 Date of Discharge: 03/18/18 HPI on admission: The patient is a 27 year old female with a PMH of asthma, seasonal allergies. She presented today to the hospital complaining of SOB that started around 4 AM. The patient used nebulizers without improvement and decided to come to Emergency Room. Yesterday in the morning she was brought by ambulance with similar complaints. On the was to the hospital, she was given 10 mg of Decadron and discharged home on Decadron for 2 days. 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 She states that over the past month, she has been using nebulizers/inhalers almost every day and wakes up at night. She was also seen in [place] ED 2 weeks ago where she was discharged on steroids for 3 days. The patient has a history of hospitalizations for asthma in the past, steroid use, no intubations. The patient denies fever, chills, productive cough, sick contacts, changes in housing, relocating. She quit smoking a month ago and states that every year around the same time she gets asthma exacerbations. Hospital Course: She was given IV SoluMedrol and Albuterol NEBs in addition to starting Singulair. Her symptoms greatly improved overnight and she was deemed medically safe for discharge on a prednisone taper and perscription for her Singulair. It was recommended that she follow up with her primary care physician within one week for further management of her asthma as well as pulmonology. Minutes to complete discharge: 35 Discharge Summary Reason For Visit: ASTHMA WITH ACUTE EXACERBATION Current Active Problems Acute asthma exacerbation (Acute) Condition: Stable - Instructions Diet, Activity, Other Instructions: You were admitted with an exacerbation of your asthma. You were given albuterol and steroids which greatly improved your symptoms. You were also started on a medication Singulair. You were monitored overnight for improvement and deemed medically safe for discharge. Medications: You should continue to use your home albuterol as needed. You were started on a medication Singulair. You should take one 10 mg Tablet each night. You should also continue the steroids by mouth as follows. Starting tomorrow, you should take 40 mg (4 tablets) for 2 days, then 30 mg (3 tablets) for 2 days , then 20 mg (2 Tablets) for 2 days, then 10 mg (1 Tablet) for 2 days, then stop taking when you run out of pills. Follow ups: You should follow up with your primary care physician within 1 week of discharge from the hospital. If you do not have one, the information for the [facility] has been provided. You should also follow up with a tennis camp instructor (lung doctor) within 2 weeks. They will likely want to do pulmonary function testing in the office and make further recommendations for the management of your asthma. If you begin to feel severely short of breath, or have any concerning symptoms, it is important that you see your doctor or return to the Emergency Department. Referrals: Kofi Mendes MD [Staff Physician] - Angel White [Primary Care Provider] - Thaddeus Prince MD [Staff Physician] - Disposition: HOME - Home Medications Comprehensive Discharge Medication List: Ambulatory Orders Albuterol Sulfate Inhaler - [Ventolin HFA Inhaler -] 1 - 2 inh PO Q4H #1 inhaler 03/16/18 Montelukast Na [Singulair -] 10 mg PO HS #30 tablet 03/18/18 predniSONE [Deltasone -] 10 mg PO ASDIR #20 tab 03/18/18 This patient is new to me today: Yes Date on this admission: 03/19/18 Emergency Visit: Yes ED Registration Date: 03/17/18 Care time: The patient presented to the Emergency Department on the above date and was hospitalized for further evaluation of their emergent condition. Critical Care patient: No - Discharge Referral Referred to [facility] Med P.C.: No
--- NOTE | 2018-03-18 14:42 | PN ---
Teaching Attending Note Name of Resident: Cl Wong ATTENDING PHYSICIAN STATEMENT I saw and evaluated the patient. I reviewed the resident's note and discussed the case with the resident. I agree with the resident's findings and plan as documented with exceptions below. SUBJECTIVE: Patient seen and examined. Breathing markedly improved. no new complaints. OBJECTIVE: Vital Signs Period Temp Pulse Resp BP Sys/Lebron Pulse Ox Last 24 Hr 98.6 F-99.0 F 65-110 18-20 111-127/72-78 93-96 Intake & Output 03/15/18 03/16/18 03/17/18 03/18/18 23:59 23:59 23:59 23:59 Intake Total 640 Balance 640 Weight 165 lb 162 lb 2 oz General: sitting in bed in no acute distress, no use of accessory muscles of respiration, able to talk in full sentences Chest: improved air entry, no rales or wheezing appreciated Active Medications Albuterol Sulfate (Ventolin 0.083% Nebulizer Soln -) 1 amp NEB Q4H PRN PRN Reason: SHORT OF BREATH/WHEEZING Albuterol/Ipratropium (Duoneb -) 1 amp NEB RQID [facility] Last Admin: 03/18/18 12:06 Dose: 1 amp Enoxaparin Sodium (Lovenox -) 40 mg SQ DAILY [facility] Last Admin: 03/18/18 09:16 Dose: 40 mg Montelukast Sodium (Singulair -) 10 mg PO HS [facility] Last Admin: 03/17/18 22:16 Dose: 10 mg Prednisone (Deltasone -) 50 mg PO DAILY [facility] Last Admin: 03/18/18 10:15 Dose: Not Given Laboratory Results - last 24 hr 03/17/18 03/18/18 03/18/18 17:05 07:30 07:30 WBC 13.5 H RBC 4.76 Hgb 14.1 Hct 44.7 MCV 94.0 MCH 29.6 MCHC 31.5 L RDW 13.5 Plt Count 284 MPV 8.0 Absolute Neuts (auto) 11.6 H Neutrophils % 85.8 H Lymphocytes % 9.2 D Monocytes % 4.7 Eosinophils % 0.0 D Basophils % 0.3 Nucleated RBC % 0 Sodium 136 Potassium 4.6 Chloride 104 Carbon Dioxide 23 Anion Gap 9 BUN 15 Creatinine 0.8 Creat Clearance w eGFR > 60 Random Glucose 97 Calcium 9.4 Phosphorus 4.2 Magnesium 2.5 H Total Bilirubin 0.3 AST 14 L ALT 21 Alkaline Phosphatase 74 Total Protein 7.5 Albumin 3.8 Influenza A (Rapid) Negative Influenza B (Rapid) Negative ASSESSMENT AND PLAN: 27 yof with asthma exacerbation -Acute asthma exacerbation -Seasonal allergies -Nicotine dependence, recently quit Plan: Markedly improved. Prednisone 40 mg with taper. Continue singulair, albuterol prn Counseled patient on continuing with smoking cessation and follow up with pulmonology/allergy. Also establish care with PCP. Medical clinic information provided. D/c home today with outpatient as above. Plan discussed with patient in detail, all questions answered. Patient relays full understanding and agrees to comply.
== END 2018-03-18 16:31 | disposition home or self-care (01) ==
LOC: JER 04:17 → JERBED 06:25 → J6S 18:18
PROVIDERS: ADMIT Internal Medicine; ATTEND Hospitalist
PROC: 3E0333Z Introduction of Anti-inflammatory into Peripheral Vein, Percutaneous Approach (ICD-10-PCS; principal; 2018-03-17)
PROC: 3E033GC Introduction of Other Therapeutic Substance into Peripheral Vein, Percutaneous Approach (ICD-10-PCS; 2018-03-17)
PROC: 3E013GC Introduction of Other Therapeutic Substance into Subcutaneous Tissue, Percutaneous Approach (ICD-10-PCS; 2018-03-17)
PROC: 3E0F7GC Introduction of Other Therapeutic Substance into Respiratory Tract, Via Natural or Artificial Opening (ICD-10-PCS; 2018-03-17)
DX: J45.901 Unspecified asthma with (acute) exacerbation (principal); J30.2 Other seasonal allergic rhinitis; Z87.891 Personal history of nicotine dependence
CPT/HCPCS: 36415; 71045-TC-FY; 80053; 83735; 84100; 84703; 85025; 87804; 93005; 93010; 94640; 94761; 96372; 96374; 96375; 96376; 99285-25; G0378